=== PATIENT | female | born 1985 | race African-American/Black ===

== ENCOUNTER 2018-01-25 20:52 | Inpatient (IN) | payer OTHER ==
[2018-01-25] MEDS ORDERED: LACTATED RINGERS 1,000 ML ONE (21:40)
[2018-01-25] MEDS ORDERED: NARCAN 0.4 MG/1 ML IV PRN (22:05)
[2018-01-25] MEDS ORDERED: BRETHINE IVP PRN (22:05)
[2018-01-25] MEDS ORDERED: BRETHINE SUB-Q PRN (22:05)
[2018-01-25] MEDS ORDERED: XYLOCAINE 2% INFILTRATI ONE (22:05)
[2018-01-25] MEDS ORDERED: SUBLIMAZE IV PRN (22:05)
--- NOTE | 2018-01-25 22:14 | History and Physical Report ---
History of Present Illness Date of examination: 01/25/18 Date of admission: 01/25/18 21:46 Chief complaint: Intense labor pains History of present illness: 32 yo Fe , EDC 01/27/2018 (LMP), 39 weeks 5 days, presents in active labor. B positive, Rubella immune, GBS Negative. Pt initiated late pretnatal care at [facility] at 22w5d. Records available. course uneventful. Denies any past medical history. 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 denies: smoking, alcohol abuse, prescription drug abuse, IV drug use - Obstetrical History Expected Date of Delivery: 01/27/18 Actual Gestation: 39 Week(s) 6 Day(s) : 2 Para: 1 Hx # Term Pregnancies: 1 Number of Pregnancies: 0 Spontaneous Abortions: 0 Induced : 0 Number of Living Children: 1 #1 Gender: Female year: 2[age][birth year] Birthweight: 2.807 kg Method of Delivery: Vaginal Gestational age at delivery: 40 Complications: none Medications and Allergies Allergies Allergy/AdvReac Type Severity Reaction Status Date / Time No Known Allergies Allergy Verified 01/25/18 21:34 Home Medications Medication Instructions Recorded Confirmed Last Taken Type Vit,Calc76/Iron/Folic 1 each PO DAILY 01/25/18 01/25/18 01/25/18 10:00 History [Pnv 29-1 Tablet] Active Meds: Active Medications Ephedrine Sulfate (Ephedrine Sulfate) 10 mg IV Q2M PRN PRN Reason: Hypotension Fentanyl (Sublimaze) 100 mcg IV Q2H PRN PRN Reason: Labor Pain Lactated Ringer's (Lactated Ringers) 1,000 mls @ 125 mls/hr IV DIRECT NAI Oxytocin/Sodium Chloride (Pitocin/Ns 20 Unit/1000ml Drip) 20 units in 1,000 mls @ 125 mls/hr IV DIRECT NAI Lidocaine (Xylocaine 2%) 20 ml INFILTRATI ONCE ONE Stop: 01/25/18 22:06 Naloxone HCl (Narcan 0.4 Mg/1 Ml) 0.1 mg IV Q2MIN PRN PRN Reason: Res Rate </= 8 or 02 SAT < 92% Terbutaline Sulfate (Brethine) 0.25 mg SUB-Q ONCE PRN PRN Reason: Hyperstimulation/Hypertonicity Terbutaline Sulfate (Brethine) 0.25 mg IVP ONCE PRN PRN Reason: Hyperstimulation/Hypertonicity Review of Systems Eyes: normal appearance Cardiovascular: no chest pain, no shortness of breath Respiratory: no shortness of breath Breasts: normal Gastrointestinal: abdominal pain (Contractions), no nausea, no vomiting, no diarrhea, no constipation Genitourinary: normal appearance, contractions (q 5 MIN), no vaginal bleeding, no leakage of fluid, no genital sores Integumentary: no rash, no sores, no lesions - Vital Signs Vital signs: Vital Signs Temp Pulse Resp BP 98.5 F 89 18 109/71 01/25/18 21:28 01/25/18 21:28 01/25/18 21:28 01/25/18 21:28 Temp Pulse Resp BP Pulse Ox 98.5 F 96 H 18 109/71 98 01/25/18 21:28 01/25/18 21:51 01/25/18 21:28 01/25/18 21:31 01/25/18 21:51 - Physical Exam Breasts: Positive: normal Cardiovascular: Regular rate, Normal S1, Normal S2 Lungs: Positive: Clear to auscultation, Normal air movement Abdomen: Positive: normal appearance, normal bowel sounds. Negative: distention Genitourinary (Female): Positive: normal external genitalia, normal perenium Vulva: both: normal Vagina: Positive: normal moisture Uterus: Positive: enlarged (gRAVID) Extremities: Positive: normal Deep Tendon Reflex Grade: Normal +2 - Obstetrical FHR: category 1 Uterine Contraction Monitor Mode: External Cervical Dilatation: 6 (On admission per thermometer maker) Cervical Effacement Percentage: 90 station: -2 Uterine Contraction Frequency (min): 2-5 Uterine Contraction Pattern: Regular Uterine Tone Measurement Phase: Resting Uterine Contraction Intensity: Moderate Results Result Diagrams: 01/25/18 21:45 All other labs normal. Assessment and Plan A: Term IUP at 39w5d Active Labor Category 1 tracing GBS negative P: Admit to L&D Routine labor orders May have IV pain med/Epidural Anticipate
[2018-01-25 22:21] LABS: Hematocrit 38.6 % (30.3-42.9); Hemoglobin 13.5 gm/dl (10.1-14.3); Mean Corpuscular HGB Conc 35 % (30-34); Mean Corpuscular Hemoglobin 32 pg (28-32); Mean Corpuscular Volume 93 fl (79-97); Platelet Count 281 K/mm3 (140-440); Red Blood Count 4.16 M/mm3 (3.65-5.03); Red Cell Distribution Width 13.1 % (13.2-15.2)
[2018-01-25] MEDS ORDERED: PITOCin/NS 20 UNIT/1000ML DRIP 20 UNITS/1,000 ML BAG IV SCH (23:00)
[2018-01-25] MEDS ORDERED: fentaNYL-BUPIV 2 MCG/ML-0.125% 200 MCG/100 ML BAG EPIDURAL SCH (23:45)
[2018-01-25] MEDS ORDERED: NARCAN 2 MG/2 ML IV PRN (23:53)
--- NOTE | 2018-01-25 23:53 | Anesthesia Consultation ---
Anesthesia Consult and Med Hx Date of service: 01/25/18 - Airway Anesthetic Teeth Evaluation: Good ROM Head & Neck: Adequate Mental/Hyoid Distance: Adequate Mallampati Class: Class II Intubation Access Assessment: Good - Pulmonary Exam CTA: Yes - Cardiac Exam Cardiac Exam: No Murmur - Pre-Operative Health Status ASA Pre-Surgery Classification: ASA2 Proposed Anesthetic Plan: Epidural - Pulmonary Hx Asthma: No - Cardiovascular System Hx Hypertension: No - Central Nervous System Hx Seizures: No Hx Psychiatric Problems: No - Endocrine Hx Renal Disease: No Hx Hypothyroidism: No Hx Hyperthyroidism: No - Hematic Hx Anemia: No Hx Sickle Cell Disease: No - Other Systems Hx Alcohol Use: No
[2018-01-26] MEDS: LACTATED RINGERS 1,000 ML IV SCH ×2 (01:40→03:30)
[2018-01-26] MEDS ORDERED: POLYCILLIN/NS 2 GM/100 ML 2 GM/100 ML BAG IV ONE (06:44)
--- NOTE | 2018-01-26 06:50 | Progress Note ---
Assessment and Plan A: Term IUP at 39w5d Active Labor Category 1 tracing GBS negative Comfortable with epidural Maternal temp 99.4 Axillary Meconium stained fluid P: Routine labor orders Pitocin Augmentation Ampicillin 2 gram IVPB Let pt labor down Notify NICU/RT for delivery Anticipate Subjective - Subjective Date of service: 01/26/18 (06:35) Principal diagnosis: Term IUP, Active labor, Maternal temp Interval history: 32 yo Fe , EDC 01/27/2018, 39 weeks 5 days, presents in active labor. GBS Negative Patient reports: movement normal, contractions Objective - Vital Signs Vital Signs: Vital Signs - 12hr 01/25/18 01/25/18 01/25/18 21:28 21:31 21:41 Temperature 98.5 F Pulse Rate 89 89 86 Respiratory 18 Rate Blood Pressure 109/71 Blood Pressure 109/71 [Left] O2 Sat by Pulse 98 Oximetry 01/25/18 01/25/18 01/25/18 21:46 21:51 22:20 Temperature Pulse Rate 92 H 96 H 103 H Respiratory Rate Blood Pressure Blood Pressure [Left] O2 Sat by Pulse 98 98 97 Oximetry 01/25/18 01/25/18 01/25/18 22:24 22:25 22:30 Temperature Pulse Rate 103 H 107 H 92 H Respiratory Rate Blood Pressure Blood Pressure [Left] O2 Sat by Pulse 94 95 97 Oximetry 01/25/18 01/25/18 01/25/18 22:31 22:54 22:59 Temperature 98.1 F Pulse Rate 92 H 85 98 H Respiratory 18 Rate Blood Pressure Blood Pressure 138/78 [Left] O2 Sat by Pulse 97 98 Oximetry 01/25/18 01/25/18 01/25/18 23:04 23:09 23:14 Temperature Pulse Rate 90 87 108 H Respiratory Rate Blood Pressure Blood Pressure [Left] O2 Sat by Pulse 97 97 98 Oximetry 01/25/18 01/25/18 01/25/18 23:19 23:24 23:29 Temperature Pulse Rate 95 H 91 H 89 Respiratory Rate Blood Pressure 128/77 Blood Pressure [Left] O2 Sat by Pulse 97 99 97 Oximetry 01/25/18 01/25/18 01/25/18 23:34 23:39 23:44 Temperature Pulse Rate 94 H 101 H 90 Respiratory Rate Blood Pressure Blood Pressure [Left] O2 Sat by Pulse 97 97 99 Oximetry 01/25/18 01/25/18 01/25/18 23:45 23:49 23:51 Temperature Pulse Rate 100 H 88 113 H Respiratory Rate Blood Pressure 135/74 126/59 123/58 Blood Pressure [Left] O2 Sat by Pulse 98 Oximetry 01/25/18 01/25/18 01/25/18 23:54 23:58 23:59 Temperature Pulse Rate 97 H 99 H 96 H Respiratory Rate Blood Pressure 91/54 Blood Pressure [Left] O2 Sat by Pulse 97 99 Oximetry 01/26/18 01/26/18 01/26/18 00:00 00:04 00:06 Temperature Pulse Rate 104 H 91 H 100 H Respiratory Rate Blood Pressure 92/55 96/51 103/59 Blood Pressure [Left] O2 Sat by Pulse 98 Oximetry 01/26/18 01/26/18 01/26/18 00:09 00:14 00:16 Temperature Pulse Rate 101 H 102 H 96 H Respiratory Rate Blood Pressure 101/61 114/68 Blood Pressure [Left] O2 Sat by Pulse 98 98 Oximetry 01/26/18 01/26/18 01/26/18 00:19 00:21 00:24 Temperature Pulse Rate 82 88 100 H Respiratory Rate Blood Pressure 111/63 Blood Pressure [Left] O2 Sat by Pulse 97 97 Oximetry 01/26/18 01/26/18 01/26/18 00:25 00:29 00:32 Temperature Pulse Rate 100 H 114 H 85 Respiratory Rate Blood Pressure 102/56 110/61 Blood Pressure [Left] O2 Sat by Pulse 97 Oximetry 01/26/18 01/26/18 01/26/18 00:34 00:35 00:39 Temperature Pulse Rate 81 103 H Respiratory 18 Rate Blood Pressure 110/61 Blood Pressure [Left] O2 Sat by Pulse 97 97 Oximetry 01/26/18 01/26/18 01/26/18 00:44 00:49 00:54 Temperature Pulse Rate 101 H 106 H 96 H Respiratory Rate Blood Pressure Blood Pressure [Left] O2 Sat by Pulse 97 97 97 Oximetry 01/26/18 01/26/18 01/26/18 00:59 01:04 01:09 Temperature Pulse Rate 95 H 104 H 99 H Respiratory Rate Blood Pressure 108/57 Blood Pressure [Left] O2 Sat by Pulse 97 98 98 Oximetry 01/26/18 01/26/18 01/26/18 01:14 01:19 01:24 Temperature Pulse Rate 94 H 92 H 86 Respiratory Rate Blood Pressure Blood Pressure [Left] O2 Sat by Pulse 97 98 97 Oximetry 01/26/18 01/26/18 01/26/18 01:29 01:33 01:34 Temperature Pulse Rate 86 93 H 118 H Respiratory Rate Blood Pressure 104/57 Blood Pressure [Left] O2 Sat by Pulse 97 99 Oximetry 01/26/18 01/26/18 01/26/18 01:39 01:44 01:49 Temperature Pulse Rate 92 H 111 H 101 H Respiratory Rate Blood Pressure Blood Pressure [Left] O2 Sat by Pulse 99 98 99 Oximetry 01/26/18 01/26/18 01/26/18 01:54 01:59 02:04 Temperature Pulse Rate 98 H 87 92 H Respiratory Rate Blood Pressure 106/54 Blood Pressure [Left] O2 Sat by Pulse 98 98 97 Oximetry 01/26/18 01/26/18 01/26/18 02:09 02:14 02:19 Temperature Pulse Rate 86 90 92 H Respiratory Rate Blood Pressure Blood Pressure [Left] O2 Sat by Pulse 97 98 98 Oximetry 01/26/18 01/26/18 01/26/18 02:24 02:29 02:34 Temperature Pulse Rate 81 83 83 Respiratory Rate Blood Pressure Blood Pressure [Left] O2 Sat by Pulse 97 97 97 Oximetry 01/26/18 01/26/18 01/26/18 02:35 02:39 02:44 Temperature Pulse Rate 83 80 98 H Respiratory Rate Blood Pressure 105/59 Blood Pressure [Left] O2 Sat by Pulse 97 98 Oximetry 01/26/18 01/26/18 01/26/18 02:49 02:54 02:59 Temperature Pulse Rate 86 95 H 90 Respiratory Rate Blood Pressure Blood Pressure [Left] O2 Sat by Pulse 97 97 97 Oximetry 01/26/18 01/26/18 01/26/18 03:04 03:08 03:09 Temperature Pulse Rate 94 H 110 H 101 H Respiratory Rate Blood Pressure 112/66 Blood Pressure [Left] O2 Sat by Pulse 96 93 99 Oximetry 01/26/18 01/26/18 01/26/18 03:14 03:19 03:24 Temperature Pulse Rate 93 H 92 H 94 H Respiratory Rate Blood Pressure Blood Pressure [Left] O2 Sat by Pulse 98 98 98 Oximetry 01/26/18 01/26/18 01/26/18 03:29 03:33 03:34 Temperature Pulse Rate 95 H 89 89 Respiratory Rate Blood Pressure 117/54 Blood Pressure [Left] O2 Sat by Pulse 98 97 Oximetry 01/26/18 01/26/18 01/26/18 03:39 03:44 03:49 Temperature Pulse Rate 89 92 H 98 H Respiratory Rate Blood Pressure Blood Pressure [Left] O2 Sat by Pulse 97 97 98 Oximetry 01/26/18 01/26/18 01/26/18 03:54 03:59 04:00 Temperature 98.3 F Pulse Rate 93 H 100 H 93 H Respiratory 18 Rate Blood Pressure Blood Pressure 109/63 [Left] O2 Sat by Pulse 97 97 Oximetry 01/26/18 01/26/18 01/26/18 04:04 04:09 04:14 Temperature Pulse Rate 93 H 100 H 97 H Respiratory Rate Blood Pressure 109/63 Blood Pressure [Left] O2 Sat by Pulse 97 97 96 Oximetry 01/26/18 01/26/18 01/26/18 04:19 04:24 04:29 Temperature Pulse Rate 89 107 H 98 H Respiratory Rate Blood Pressure Blood Pressure [Left] O2 Sat by Pulse 97 97 96 Oximetry 01/26/18 01/26/18 01/26/18 04:33 04:34 04:39 Temperature Pulse Rate 100 H 91 H 106 H Respiratory Rate Blood Pressure 114/59 Blood Pressure [Left] O2 Sat by Pulse 97 97 Oximetry 01/26/18 01/26/18 01/26/18 04:44 04:49 04:54 Temperature Pulse Rate 108 H 102 H 90 Respiratory Rate Blood Pressure Blood Pressure [Left] O2 Sat by Pulse 97 96 96 Oximetry 01/26/18 01/26/18 01/26/18 04:59 05:03 05:04 Temperature Pulse Rate 94 H 84 89 Respiratory Rate Blood Pressure 119/58 Blood Pressure [Left] O2 Sat by Pulse 95 96 Oximetry 01/26/18 01/26/18 01/26/18 05:09 05:14 05:19 Temperature Pulse Rate 92 H 89 89 Respiratory Rate Blood Pressure Blood Pressure [Left] O2 Sat by Pulse 97 96 96 Oximetry 01/26/18 01/26/18 01/26/18 05:24 05:29 05:33 Temperature Pulse Rate 99 H 107 H 98 H Respiratory Rate Blood Pressure 118/56 Blood Pressure [Left] O2 Sat by Pulse 97 96 Oximetry 01/26/18 01/26/18 01/26/18 05:34 05:39 05:44 Temperature Pulse Rate 99 H 91 H 101 H Respiratory Rate Blood Pressure Blood Pressure [Left] O2 Sat by Pulse 96 97 95 Oximetry 01/26/18 01/26/18 01/26/18 05:49 05:54 05:59 Temperature Pulse Rate 99 H 94 H 97 H Respiratory Rate Blood Pressure Blood Pressure [Left] O2 Sat by Pulse 96 96 96 Oximetry 01/26/18 01/26/18 01/26/18 06:00 06:03 06:04 Temperature 98.7 F Pulse Rate 100 H 96 H 97 H Respiratory 18 Rate Blood Pressure 119/63 113/62 Blood Pressure 113/62 [Left] O2 Sat by Pulse 96 Oximetry 01/26/18 01/26/18 01/26/18 06:09 06:14 06:19 Temperature Pulse Rate 102 H 99 H 106 H Respiratory Rate Blood Pressure Blood Pressure [Left] O2 Sat by Pulse 98 98 98 Oximetry 01/26/18 01/26/18 01/26/18 06:24 06:29 06:34 Temperature Pulse Rate 96 H 98 H 103 H Respiratory Rate Blood Pressure 112/78 Blood Pressure [Left] O2 Sat by Pulse 97 97 97 Oximetry 01/26/18 06:39 Temperature Pulse Rate 100 H Respiratory Rate Blood Pressure Blood Pressure [Left] O2 Sat by Pulse 98 Oximetry - Exam Breasts: normal Cardiovascular: Regular rate, Normal S1, Normal S2 Lungs: Clear to auscultation, Normal air movement Abdomen: Present: normal appearance, soft, normal bowel sounds. Absent: distention Vulva: both: normal FHR: category 1 FHR comments: FHT 135, moderate variability, early decels Uterine Contraction Monitor Mode: External Cervical Dilatation: 10 (AROM, moderate meconium stained fluid. ) Cervical Effacement Percentage: 100 station: 0 Uterine Contraction Frequency (min): 1-4 Uterine Contraction Pattern: Regular Uterine Tone Measurement Phase: Resting Uterine Contraction Intensity: Strong/Firm Extremities: normal Deep Tendon Reflex Grade: Normal +2 - Labs Labs: Abnormal Labs 01/25/18 21:45 WBC 14.2 H MCHC 35 H RDW 13.1 L Laboratory Results - last 24 hr 01/25/18 01/25/18 21:45 21:45 WBC 14.2 H RBC 4.16 Hgb 13.5 Hct 38.6 MCV 93 MCH 32 MCHC 35 H RDW 13.1 L Plt Count 281 Blood Type B POSITIVE Antibody Screen Negative
[2018-01-26] MEDS ORDERED: PITOCin/NS 30 UNIT/500ML 30 UNITS/500 ML BAG IV SCH (07:00)
[2018-01-26] MEDS ORDERED: DULCOLAX PR PRN (10:04)
[2018-01-26] MEDS ORDERED: LANSINOH TP PRN (10:04)
[2018-01-26] MEDS ORDERED: MILK OF MAGNESIA PO PRN (10:04)
[2018-01-26] MEDS ORDERED: TUCKS PAD TP PRN (10:04)
[2018-01-26] MEDS ORDERED: PHENERGAN PO PRN (10:04)
[2018-01-26] MEDS ORDERED: TYLENOL PO PRN (10:04)
[2018-01-26] MEDS ORDERED: BENADRYL PO PRN (10:04)
[2018-01-26] MEDS ORDERED: ZOFRAN IV PRN (10:04)
[2018-01-26] MEDS ORDERED: NORCO 5/325 PO PRN (10:04)
--- NOTE | 2018-01-26 10:17 | Procedure Note ---
OB Delivery Note - Delivery Date of Delivery: 01/26/18 (09:55) Surgeon: DELORES DU (BRITTANY) Estimated blood loss: 200cc - Vaginal Delivery presentation: vertex Delivery position: OA Intrapartum events: mult.variable deceleratio Delivery induction: none Delivery augmentation: rupture of membranes, pitocin Delivery monitor: external FHT, external uterine Route of delivery: (09:55) Delivery placenta: spontaneous (Rene) Delivery cord: nuchal cord (x1 loose), 3 umbilical vessels Delivery laceration: none Anesthesia: epidural Delivery comments: viable female , HAMMAD position, loose nuchal cord X1 delivered intact via somersault maneuver at 09:55. NICU/RT present for delivery d/t meconium stained fluid. Spontaneous cry noted. Cord clamped and infant to RW for assessment d/t thick meconium and "wet respirations" Spontaneous rene delivery of intact placenta at 019:57. Intact. 3VC. FF@U-2. Bladder distended. 300CC clear yellow urine drained from bladder using red rubber catheter. Perineum intact. No tears or lacerations. EBL 200ml. and mother left in stable condition in L&D. Maternal temp 98.7. One dose Ampicillin given during labor d/t maternal temp 99.8. - A at 1 minute: 8 at 5 minutes: 9 Gender: Female (7lbs 5oz, 3308 grams, 20")
[2018-01-26] MEDS ORDERED: SODIUM CHLORIDE FLUSH SYRINGE 10 ML IV NR (11:00)
[2018-01-26] MEDS: MOTRIN PO SCH ×3 (12:27→23:28)
[2018-01-27 00:37] LABS: Hemoglobin 11.1 gm/dl (10.1-14.3)
[2018-01-27] MEDS: MOTRIN PO SCH (05:28)
[2018-01-27] MEDS ORDERED: BOOSTRIX IM ONE ×2 (06:00→15:30)
--- NOTE | 2018-01-27 10:37 | Progress Note ---
Assessment and Plan A: PPD#1 s/p Stable P: Routine PP orders Discharge home today Routine PPE in 6 weeks Subjective - Subjective Date of service: 01/27/18 Principal diagnosis: PPD#1 s/p Interval history: 32 yo Fe , EDC 01/27/2018 (LMP), 39 weeks 5 days, presents in active labor. B positive, Rubella immune, GBS Negative. Pt initiated late pretnatal care at [facility] at 22w5d. Records available. course uneventful. Denies any past medical history. Patient reports: appetite normal, voiding normally, pain well controlled, flatus , ambulating normally : doing well, bottle feeding Objective - Vital Signs Latest vital signs: Vital Signs Temp Pulse Resp BP BP Pulse Ox 01/27/18 08:19 98.6 F 78 16 103/60 99 01/27/18 00:00 98.6 F 67 18 118/67 01/26/18 23:28 18 01/26/18 20:00 98.7 F 74 16 114/74 01/26/18 17:12 97.8 F 83 18 112/58 99 01/26/18 11:30 98.3 F 81 18 118/66 97 01/26/18 11:21 89 96 01/26/18 11:16 90 98 01/26/18 11:15 98.6 F 01/26/18 11:11 92 H 97 01/26/18 11:06 88 96 01/26/18 11:01 98 H 97 01/26/18 10:56 97 H 97 01/26/18 10:51 94 H 98 01/26/18 10:46 89 98 Intake and Output 01/26/18 01/27/18 01/27/18 23:59 07:59 15:59 Intake Total 605 Balance 605 Intake: IV 125 Left Upper arm 125 Oral 240 Intake, Free Water 240 Other: Total, Intake Amount 240 - Exam Breasts: Present: normal Cardiovascular: Present: Regular rate, Normal S1, Normal S2, No murmurs Lungs: Present: Clear to auscultation, Normal air movement Abdomen: Present: normal appearance, soft, normal bowel sounds. Absent: distention Vulva: both: normal Uterus: Present: firm, fundal height below umbilicus (-1) Extremities: Present: normal Deep Tendon Reflex Grade: Normal +2 - Labs Labs: Abnormal lab results 01/26/18 Range/Units 23:26 Hct 30.0 L D (30.3-42.9) %
--- NOTE | 2018-01-27 10:39 | Discharge Summary ---
Providers - Providers Date of Admission: 01/25/18 21:46 Date of discharge: 01/27/18 Attending physician: JOVANNA TAM MD Primary care physician: JOVANNA TAM MD Hospitalization Reason for admission: active labor, IUP at term Delivery: Procedure details: See delivery note Episiotomy: none Laceration: none Other procedures: none complications: none Discharge diagnosis: IUP at term delivered [place] baby: female Condition at discharge: Good Disposition: DC-01 TO HOME OR SELFCARE Plan - Provider Discharge Summary Activity: routine, no sex for 6 weeks, no heavy lifting 4 weeks, no strenuous exercise Diet: routine Instructions: routine Additional instructions: [] Smoking cessation referral if applicable(refer to patient education folder for contact #) [] Refer to [facility] Booklet Call your doctor immediately for: * Fever > 100.5 * Heavy vaginal bleeding ( >1 pad per hour) * Severe persistent headache * Shortness of breath * Reddened, hot, painful area to leg or breast * Drainage or odor from incision. * Keep incision clean and dry at all times and follow doctor's instructions regarding bathing/showering - Follow up plan Follow up: JOVANNA TAM MD [Primary Care Provider] - 6 Weeks
[2018-01-28] MEDS: MOTRIN PO SCH ×2 (00:32→06:06)
[2018-01-28 13:23] VITALS: BP 121/79
== END 2018-01-28 16:00 | disposition home or self-care (01) | DRG 775 ==
LOC: TRG 20:52 → LD 21:46 → OB 01-26 11:58
PROVIDERS: ADMIT Obstetrics & Gynecology; ATTEND Obstetrics & Gynecology
PROC: 10E0XZZ Delivery of Products of Conception, External Approach (ICD-10-PCS; principal; 2018-01-26)
PROC: 3E0R3BZ Introduction of Anesthetic Agent into Spinal Canal, Percutaneous Approach (ICD-10-PCS; 2018-01-26)
PROC: 00HU33Z Insertion of Infusion Device into Spinal Canal, Percutaneous Approach (ICD-10-PCS; 2018-01-26)
DX: O76 Abnormality in fetal heart rate and rhythm complicating labor and delivery (principal); Z3A.39 39 weeks gestation of pregnancy; Z37.0 Single live birth; Z82.49 Family history of ischemic heart disease and other diseases of the circulatory system; O69.81X0 Labor and delivery complicated by cord around neck, without compression, not applicable or unspecified
CPT/HCPCS: 36415; 85014; 85018; 85027; 86592; 86850; 86900; 86901; 90715; 99211; G0463; J0290; J2590; J7120

== ENCOUNTER 2019-05-12 22:49 | Inpatient (IN) | payer OTHER ==
[2019-05-12] MEDS ORDERED: TERBUTALINE 1 MG/1 ML INJ SUB-Q PRN (23:40)
[2019-05-12] MEDS ORDERED: LIDOCAINE (2%) 20 MG/1 ML VIAL 20 ML MDV INFILTRATI ONE (23:40)
[2019-05-12] MEDS ORDERED: fentaNYL 100 MCG/2 ML INJ IV PRN (23:40)
[2019-05-12] MEDS ORDERED: ePHEDrine SULFATE 50 MG/1 ML INJ IV PRN (23:40)
[2019-05-12] MEDS ORDERED: AMPICILLIN/NS 2 GM/100 ML 2 GM/100 ML BAG IV ONE (23:40)
[2019-05-12] MEDS ORDERED: OXYTOCIN 20 UNIT/1000ML DRIP 20 UNITS/1,000 ML BAG IV SCH (23:45)
[2019-05-12] MEDS ORDERED: LACTATED RINGERS 1,000 ML IV SCH (23:45)
--- NOTE | 2019-05-12 23:47 | History and Physical Report ---
History of Present Illness Date of examination: 05/12/19 Date of admission: 05/13/2019 Chief complaint: Contractions History of present illness: 34 year old female presents to L&D with complaint of contractions for past day and leaking of water for past 6 hours. Patient states she receives care at [facility] clinic but no records are available. Patient states her due date is 05/29/19. No labs are available; labs have been drawn on admission. GBS unknown; prophylaxis ordered. 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 denies: smoking, alcohol abuse, prescription drug abuse, IV drug use - Obstetrical History Expected Date of Delivery: 05/29/19 Actual Gestation: 37 Week(s) 5 Day(s) : 3 Para: 2 Hx # Term Pregnancies: 2 Number of Pregnancies: 0 Spontaneous Abortions: 0 Induced : 0 Number of Living Children: 2 Medications and Allergies Allergies Allergy/AdvReac Type Severity Reaction Status Date / Time No Known Allergies Allergy Verified 05/12/19 23:06 Home Medications Medication Instructions Recorded Confirmed Last Taken Type Vit,Calc76/Iron/Folic 1 each PO DAILY 01/25/18 01/25/18 01/25/18 10:00 History [Pnv 29-1 Tablet] Active Meds: Active Medications Ephedrine Sulfate (Ephedrine Sulfate) 10 mg IV Q2M PRN PRN Reason: Hypotension Fentanyl (Sublimaze) 100 mcg IV Q2H PRN PRN Reason: Labor Pain Oxytocin/Sodium Chloride (Pitocin/Ns 20 Unit/1000ml Drip) 20 units in 1,000 mls @ 125 mls/hr IV DIRECT NAI Lactated Ringer's (Lactated Ringers) 1,000 mls @ 125 mls/hr IV DIRECT NAI Ampicillin Sodium (Ampicillin/Ns 2 Gm/100 Ml) 2 gm in 100 mls @ 100 mls/hr IV ONCE ONE; Protocol Stop: 05/13/19 00:39 Lidocaine (Xylocaine 2%) 20 ml INFILTRATI ONCE ONE Stop: 05/12/19 23:41 Terbutaline Sulfate (Brethine) 0.25 mg SUB-Q ONCE PRN PRN Reason: Hyperstimulation/Hypertonicity Review of Systems All systems: negative (contractions and leaking of water) - Physical Exam Abdomen: Positive: normal appearance, soft. Negative: distention, tenderness, guarding, rigidity Genitourinary (Female): Positive: normal external genitalia, normal perenium. Negative: perineal/vulvar lesions (no lesions seen on careful exam with bright light upon admission) Vagina: Positive: other (meconium stained amniotic fluid) Uterus: Positive: enlarged Anus/Rectum: Positive: normal perianal skin Extremities: Positive: normal. Negative: tenderness, edema - Obstetrical FHR: category 2 Uterine Contraction Monitor Mode: External Cervical Dilatation: 6 Cervical Effacement Percentage: 100 station: -1 Uterine Contraction Pattern: Regular Uterine Contraction Intensity: Moderate Results Result Diagrams: 05/12/19 23:39 All other labs normal. Assessment and Plan A: at 37 weeks, 5 days gestation. Active labor. GBS unknown. SROM with meconium stained amniotic fluid. No records available. P: Admit. GBS prophylaxis. Draw labs; request records. Continuous EFM. Anticipate vaginal .
[2019-05-13 00:16] LABS: Hematocrit 38.6 % (30.3-42.9); Hemoglobin 13.3 gm/dl (10.1-14.3); Mean Corpuscular HGB Conc 34 % (30-34); Mean Corpuscular Volume 92 fl (79-97); Platelet Count 265 K/mm3 (140-440); Red Blood Count 4.19 M/mm3 (3.65-5.03); Red Cell Distribution Width 14.4 % (13.2-15.2)
[2019-05-13] MEDS ORDERED: NALOXONE 2 MG/2 ML INJ IV PRN (01:50)
[2019-05-13] MEDS ORDERED: ePHEDrine SULFATE 50 MG/1 ML INJ IV PRN (01:50)
--- NOTE | 2019-05-13 01:53 | Anesthesia Consultation ---
Anesthesia Consult and Med Hx Date of service: 05/13/19 - Airway Anesthetic Teeth Evaluation: Good ROM Head & Neck: Adequate Mental/Hyoid Distance: Adequate Mallampati Class: Class II Intubation Access Assessment: Good - Pulmonary Exam CTA: Yes - Cardiac Exam Cardiac Exam: RRR - Pre-Operative Health Status ASA Pre-Surgery Classification: ASA2, Emergency Proposed Anesthetic Plan: Epidural, Spinal - Pulmonary Hx Asthma: No - Cardiovascular System Hx Hypertension: No - Central Nervous System Hx Seizures: No Hx Psychiatric Problems: No - Endocrine Hx Renal Disease: No Hx Hypothyroidism: No Hx Hyperthyroidism: No - Hematic Hx Anemia: No Hx Sickle Cell Disease: No - Other Systems Hx Alcohol Use: No
[2019-05-13] MEDS ORDERED: DEXMEDETOMIDINE 200 MCG/2 ML VIAL IV ONE (01:56)
[2019-05-13] MEDS ORDERED: fentaNYL-BUPIV 2 MCG/ML-0.125% 200 MCG/100 ML BAG EPIDURAL SCH (02:00)
--- NOTE | 2019-05-13 02:25 | Event Note ---
Date: 05/13/19 Patient has just received epidural and is now comfortable. Patient tried to push for about 30 minutes prior to receiving epidural as she was completely dilated but stated that she was afraid of the pain and so was not pushing effectively. FSE applied to better trace FHR. FHR baseline 140 with moderate variability and accelerations. Occasional brief variable FHR deceleration with rapid return to baseline. Consulted with Dr. Charles at 02:31 re: poor maternal pushing, FHR tracing, interventions taken, estimation of size based on Efrain's.
[2019-05-13] MEDS ORDERED: AMPICILLIN/NS 1 GM/50 ML 1 GM/50 ML BAG IV SCH (03:46)
[2019-05-13] MEDS ORDERED: METOCLOPRAMIDE 10 MG/2 ML INJ ONE (04:25)
[2019-05-13] MEDS ORDERED: FAMOTIDINE 20 MG/2 ML INJ IV ONE ×2 (04:25→04:29)
[2019-05-13] MEDS ORDERED: BICITRA ORAL LIQD 30ML ONE (04:25)
[2019-05-13] MEDS ORDERED: BICITRA ORAL LIQD 30ML PO ONE (04:29)
[2019-05-13] MEDS ORDERED: METOCLOPRAMIDE 10 MG/2 ML INJ IV ONE (04:29)
[2019-05-13] MEDS ORDERED: ONDANSETRON 4 MG/2 ML INJ ONE (04:35)
[2019-05-13] MEDS ORDERED: LIDOCAINE 2%/EPINEPHRINE 1:200,000 VIAL (20 ML) INFILTRATI ONE (04:35)
[2019-05-13] MEDS ORDERED: WATER FOR IRRIG STERILE 1,500 ML BOTTLE IR ONE (04:39)
[2019-05-13] MEDS ORDERED: SODIUM CHLORIDE 0.9% IRR 1,500 ML BOTTLE IR ONE (04:39)
--- NOTE | 2019-05-13 04:47 | Event Note ---
Date: 05/13/19 Patient rested and labored down from time of epidural placement until 03:30 am. Patient remained afebrile. At 03:30 patient reported a strong urge to push. Patient pushed at 03:30 and had a variable FHR deceleration to the 80s with gradual return to baseline. Called Dr. Charles as soon as patient started pushing and had this variable deceleration at 03:30 and asked him to come expedite delivery due to variable FHR decelerations and slow descent. Patient pushed with every 3rd contraction due to strong urge to push and she rested in between while awaiting Dr. Charles. Patient positioned in lateral position with oxygen per face mask at 10 LPM. FHR baseline 135-140 with moderate variability and intermittent variable FHR decelerations. At 04:13 Dr. Charles arrived, examined patient and had patient push for several contractions. Dr. Charles states he is going to deliver patient by section. Dr. Charles discussed this plan to deliver by section with patient and her significant other. Patient signed consents and orders put in.
[2019-05-13] MEDS ORDERED: PHENYLEPHRINE/NS 1,000 MCG/10 ML SYRINGE (OR USE) IV ONE (04:51)
[2019-05-13 04:58] LABS: Hepatitis C Virus Antibody Non-Reactive (NonReactive)
[2019-05-13] MEDS ORDERED: LACTATED RINGERS 1,000 ML IV SCH (05:00)
[2019-05-13] MEDS ORDERED: ceFAZolin/Water 2 GM/20 ML 2 GM/20 ML SYRINGE IV NR (05:00)
[2019-05-13] MEDS ORDERED: OXYTOCIN 20 UNIT/1000ML DRIP 20 UNITS/1,000 ML BAG IV SCH ×2 (05:00→07:00)
[2019-05-13] MEDS ORDERED: KETOROLAC 30 MG/1 ML INJ ONE (05:33)
[2019-05-13] MEDS ORDERED: HYDROmorphone 1 MG/1 ML INJ ONE (05:36)
[2019-05-13] MEDS ORDERED: WITCH HAZEL/ GLYCERIN PAD TP PRN (06:04)
[2019-05-13] MEDS ORDERED: ONDANSETRON 4 MG/2 ML INJ IV PRN ×2 (06:04→06:24)
[2019-05-13] MEDS ORDERED: NALOXONE 0.4 MG/1 ML INJ IV PRN ×2 (06:04→06:24)
[2019-05-13] MEDS ORDERED: LANOLIN/ZINC/DIMETHICONE (LANSINOH) 7 GM TP PRN (06:04)
[2019-05-13] MEDS ORDERED: ACETAMINOPHEN 325 MG TAB PO PRN (06:04)
[2019-05-13] MEDS ORDERED: MORPHINE 4 MG/1 ML INJ IV PRN (06:04)
--- NOTE | 2019-05-13 06:18 | Event Note ---
Date: 05/13/19 I was called to evaluate the patient who had been pushing in the second stage for at least an hour. At the peak of her maternal efforts at pushing, the station was +3 station. Evaluation of the bony pelvis versus bony head showed a tight fit anteriorly and at the sides of the pelvis. The small gap posteriorly within the mid pelvis was deemed insufficient to accommodate the rest of the baby. Irrespective of the manual estimation of size at about 7 pounds, the decision was made to proceed to a delivery as opposed to an operative vaginal one. The clinical situation was explained to the patient and her family. She understood the risks of a delivery but gave her consent. Impression was of a cephalopelvic disproportion. Plan: Delivery by section.
--- NOTE | 2019-05-13 06:21 | Anesthesia Day of Surgery ---
Anesthesia Day of Surgery - Day of Surgery Patient Examined: Yes Patient H&P Reviewed: Yes Patient is NPO: Yes
--- NOTE | 2019-05-13 06:21 | Post Anesthesia Evaluation ---
- Post Anesthesia Evaluation Patient Participated: Yes Airway Patent: Yes Stable Respiratory Function: Yes Nausea/Vomiting: No Temp > 96.8F: Yes Pain Manageable: Yes Adequeate Hydration: Yes Anesthesia Complications: No Block Receding Appropriately: Yes Patient on Ventilator: No
[2019-05-13] MEDS ORDERED: PROMETHAZINE 25 MG RECT SUPP PR PRN (06:24)
[2019-05-13] MEDS ORDERED: PROMETHAZINE 25 MG TAB PO PRN (06:24)
[2019-05-13] MEDS ORDERED: HYDROmorphone 1 MG/1 ML INJ IV PRN ×2 (06:24)
--- NOTE | 2019-05-13 06:30 | Operative Report ---
Operative Report Operative Report: Date of surgery: 05/13/2019 Preoperative diagnoses: Cephalopelvic disproportion Postoperative diagnoses: The same. Operation: Lower segment transverse delivery Surgeon:Archana Charles MD Metal Alloy Scientist: Ryan Mcintosh CRNA Anesthesia: Spinal block Estimated blood loss: 800 mL Complications: None Recommendations the patient with regards to future pregnancies: An elective delivery is recommended for future pregnancies due to the thinning and laceration of the lower uterine segment. This recommendation was conveyed to the patient and her . Findings: There was a Bandl's ring noted over the lower uterine segment. Both ovaries and fallopian tubes were grossly normal. The lower uterine segment was so thinned out extraction of the head from the obstetrical pelvis caused a longitudinal tear of the lower flap of the uterine incision towards the cervix anteriorly. The fetus was a live baby boy, weight 8 lbs. 1 oz. with Apgars of 8/9. The amniotic fluid was meconium stained. Procedure in detail: The patient was taken to the operating room and given a spinal block. Patient was placed in the straight supine position and a Montes De Oca catheter was inserted. The patient was prepped in the abdomen. The drapes were placed. A timeout was done. With the go ahead from the bricklayer paving brick, a Pfannenstiel incision was made. This incision was carried across the subcutaneous layer to the fascia which was also divided transversely. The recti abdominis muscle flaps were stripped from the fascia using a combination of blunt and sharp dissections. The muscles were in the midline to gain access to the anterior parietal peritoneum which was divided after excluding any underlying viscera. The access to the peritoneal cavity was then widened by manual stretching. The bladder blade was applied. The utero vesicle peritoneal flap was divided transversely allowing the bladder to be displaced caudally. The uterine incision was placed in the lower segment transversely. The uterine incision was carried to the decidual layer. The uterine incision was extended on both sides using the bandage scissors. The amniotic sac was ruptured with clear fluid. The head was lifted out of the false maternal pelvis and delivered through the incision using fundal pressure. The airways were bulb suctioned beginning with the mouth. Continuing fundal pressure combined with traction on the mandibular processes of the jaw delivered the rest of the baby. The umbilical cord was double clamped and divided. The baby was carefully transferred to the pediatric team. The placenta was manually removed from the uterine cavity. The uterine cavity was explored and was empty of any placental remnants. The uterine incision was repaired in 2 layers with #1 Vicryl. The linear tear within the anterior flap of the uterine incision was repaired beginning from the cervix and back towards the hysterotomy. The surgical line on the uterus was hemostatic. Blood and clots were cleared from the peritoneal cavity. The anterior parietal peritoneum was repaired with #1 Vicryl. The fascia was repaired with #1 Vicryl. The subcutaneous layer was made hemostatic using the Bovie before the skin was closed subcuticularly with 4-0 Vicryl. There were no complications. The estimated blood loss was 800 mL. All sponges and instrument counts were correct. Patient was safely transferred to the recovery room.
[2019-05-13] MEDS: KETOROLAC 30 MG/1 ML INJ IV PRN ×3 (09:28→22:00)
[2019-05-13] MEDS: ceFAZolin/NS 1 GM/50 ML 1 GM/50 ML BAG IV SCH ×2 (15:09→22:40)
[2019-05-13] MEDS: LACTATED RINGERS 1,000 ML IV SCH ×2 (15:25→21:59)
[2019-05-13 18:10] LABS: Hematocrit 28.2 % (30.3-42.9); Hemoglobin 9.5 gm/dl (10.1-14.3)
[2019-05-13] MEDS: IBUPROFEN 800 MG TAB PO PRN (23:48)
[2019-05-14] MEDS: IBUPROFEN 800 MG TAB PO PRN ×3 (06:00→18:01)
[2019-05-14] MEDS: PRENATAL VIT27-FE FUMARATE-FOLIC ACID VIT TAB PO SCH (09:57)
[2019-05-14] MEDS: FERROUS SULFATE 325 MG TAB PO SCH (09:57)
--- NOTE | 2019-05-14 17:30 | Progress Note ---
Assessment and Plan A: /postop day 1 S/P primary low transverse section. Anemia secondary to blood loss. P: Continue iron supplementation. Encouraged ambulation. Subjective - Subjective Date of service: 05/14/19 Principal diagnosis: /postop day 1 Interval history: /postop day 1 S/P primary low transverse section. Doing well. Patient reports small amount of lochia. She is voiding without difficulty, passing gas, tolerating a regular diet, and ambulating well. Patient denies headache, cough, dizziness, chest pain, shortness of breath, leg pain, heavy bleeding, or nausea/vomiting. Patient reports: appetite normal, voiding normally, pain well controlled, flatus, ambulating normally, no dizzy ambulation, no nauseated [place]: doing well Objective - Vital Signs Latest vital signs: Vital Signs Temp Pulse Resp BP BP Pulse Ox 05/14/19 08:14 97.1 F L 83 18 96/49 05/14/19 04:42 98.0 F 86 18 104/53 100 05/14/19 01:12 98.1 F 94 H 18 97/56 97 Intake and Output 05/14/19 05/14/19 05/14/19 07:59 15:59 23:59 Intake Total 240 480 Balance 240 480 Intake: Oral 240 480 Other: Total, Intake Amount 120 480 # Voids Indwelling Catheter 1 - Exam Cardiovascular: Present: Regular rate, Normal S1, Normal S2, No murmurs Lungs: Present: Clear to auscultation Abdomen: Present: normal appearance, soft, normal bowel sounds. Absent: distention, tenderness, guarding, rigidity Uterus: Present: normal, firm, fundal height below umbilicus. Absent: bogginess, tenderness Extremities: Present: normal. Absent: tenderness, edema Incision: Present: normal, dry, intact, dressed - Labs Labs: Abnormal lab results 05/13/19 Range/Units 17:50 Hgb 9.5 L D (10.1-14.3) gm/dl Hct 28.2 L D (30.3-42.9) %
[2019-05-15] MEDS: IBUPROFEN 800 MG TAB PO PRN (01:50)
[2019-05-15] MEDS: PRENATAL VIT27-FE FUMARATE-FOLIC ACID VIT TAB PO SCH (08:45)
[2019-05-15] MEDS: FERROUS SULFATE 325 MG TAB PO SCH (08:45)
--- NOTE | 2019-05-15 10:52 | Progress Note ---
Assessment and Plan - Patient Problems (1) S/P primary low transverse Current Visit: Yes Status: Acute Plan to address problem: POD 2 - stable Continue routine postop orders Ambulation, abdominal binder encouraged, as tolerated Discharge later today Follow up at [facility] as needed or in 1 week for incision check (2) Anemia due to blood loss, acute Current Visit: Yes Status: Acute Plan to address problem: Asymptomatic Continue iron therapy Subjective - Subjective Date of service: 05/15/19 Principal diagnosis: POD #2; s/p Primary LTCS Interval history: see H&P, Event Notes, Operative Report and PP/[employer] Progress Note Patient reports: appetite normal, voiding normally, pain well controlled, flatus, bowel movement, ambulating normally, no dizzy ambulation [place]: doing well, other (breast and bottle feeding) Objective - Vital Signs Latest vital signs: Vital Signs Temp Pulse Resp BP BP Pulse Ox 05/15/19 08:17 98.0 F 88 18 110/68 98 05/15/19 01:12 97.7 F 92 H 16 96/61 98 05/14/19 16:20 97.8 F 79 18 92/54 Intake and Output 05/14/19 05/15/19 05/15/19 23:59 07:59 15:59 Intake Total 720 240 Balance 720 240 Intake: Oral 480 Intake, Free Water 240 240 Other: Total, Intake Amount 480 # Voids Void 2 1 - Exam Cardiovascular: Present: Regular rate Lungs: Present: Clear to auscultation Abdomen: Present: normal appearance, soft Vulva: both: normal Uterus: Present: normal, firm, fundal height below umbilicus Extremities: Present: normal Incision: Present: normal, dry, intact, other (steri strips in place) Comments: scant lochia
--- NOTE | 2019-05-15 11:01 | Discharge Summary ---
Providers - Providers Date of Admission: 05/12/19 23:54 Date of discharge: 05/15/19 Attending physician: WARD WATSON MD Primary care physician: WARD WATSON MD Hospitalization Reason for admission: active labor, IUP at term Delivery: Procedure: primary low transverse Episiotomy: none Laceration: none Incision: normal, dry, intact, other (steri strips in place) Other procedures: none complications: none Discharge diagnosis: IUP at term delivered [place] baby: male Hospital course: Uncomplicated Condition at discharge: Stable Disposition: DC- TO HOME OR SELFCARE - Discharge Diagnoses (1) S/P primary low transverse Status: Acute (2) Anemia due to blood loss, acute Status: Acute Comment: Asymptomatic Continue iron therapy Eat iron-rich foods Plan - Discharge Medications Prescriptions: Ferrous Sulfate [Feosol 325 MG tab] 325 mg PO QDAY #30 tablet Ibuprofen [Motrin 800 MG tab] 800 mg PO Q6H PRN #30 tablet PRN Reason: Pain, Mild (1-3) HYDROcodone/APAP 5-325 [[place] 5/325] 1 - 2 each PO Q4HR PRN #30 tablet PRN Reason: Pain - Provider Discharge Summary Activity: routine, no sex for 6 weeks, no heavy lifting 4 weeks, no strenuous exercise Diet: routine Instructions: routine Additional instructions: [] Smoking cessation referral if applicable(refer to patient education folder for contact #) [] Refer to [facility] Booklet Call your doctor immediately for: * Fever > 100.5 * Heavy vaginal bleeding ( >1 pad per hour) * Severe persistent headache * Shortness of breath * Reddened, hot, painful area to leg or breast * Drainage or odor from incision. * Keep incision clean and dry at all times and follow doctor's instructions regarding bathing/showering - Follow up plan Follow up: WARD WATSON MD [Primary Care Provider] - 7 Days (Follow up at [facility] as needed or in 1 week for incision check)
[2019-05-15 13:40] VITALS: BP 102/47
[2019-05-20 11:12] LABS: HIV-1 Antibody Differentiation SEE SCANNED RESULT; HIV-2 Antibody Differentiation SEE SCANNED RESULT
== END 2019-05-15 14:30 | disposition home or self-care (01) | DRG 787 ==
LOC: TRG 22:49 → LD 23:54 → OB 05-13 08:53
PROVIDERS: ADMIT Obstetrics & Gynecology; ATTEND Obstetrics & Gynecology
PROC: 10D00Z1 Extraction of Products of Conception, Low, Open Approach (ICD-10-PCS; principal; 2019-05-13)
DX: O33.9 Maternal care for disproportion, unspecified (principal); D62 Acute posthemorrhagic anemia; O99.02 Anemia complicating childbirth; O76 Abnormality in fetal heart rate and rhythm complicating labor and delivery; O77.0 Labor and delivery complicated by meconium in amniotic fluid; Z3A.37 37 weeks gestation of pregnancy; Z37.0 Single live birth
CPT/HCPCS: 36415; 83036; 85014; 85018; 85027; 86592; 86689; 86706; 86762; 86803; 86850; 86900; 86901; 87806; G0378; J0290; J0690; J1170; J1885; J2370; J2405; J2590; J2765; J3490; J7120